=== PATIENT | female | born 1975 | race Caucasian/White ===

== ENCOUNTER 2017-04-13 10:27 | Emergency (ER) | payer BC, OTHER ==
[2017-04-13 11:17] LABS: Urine Appearance Clear; Urine Color Yellow
[2017-04-13 11:18] LABS: Urine Bilirubin Negative (NEGATIVE); Urine Blood Negative /ul (NEGATIVE); Urine Ketone Negative (NEGATIVE); Urine Nitrite Negative (NEGATIVE); Urine Protein Negative (NEGATIVE); Urine Specific Gravity 1.015 SP.GR. (1.005-1.010); Urine Urobilinogen Normal (NORMAL); Urine WBC 0-5 /hpf (0-5)
[2017-04-13 11:19] LABS: Urine Bacteria None Seen; Urine RBC None Seen /hpf (0-5)
[2017-04-13] MEDS ORDERED: KETOROLAC TROMETHAMINE 30 MG/ML VIAL IV ONE (11:44)
[2017-04-13] MEDS ORDERED: NORMAL SALINE 1,000 ML IV ONE (11:44)
--- NOTE | 2017-04-13 11:48 | ERNOTE ---
ER Female HPI Date of Service: 04/13/17 Stated Complaint: SEVERE BACK PAIN,ABDOMEN PAIN Presenting Symptoms: dysuria, other - Right flank pain down into suprapubic region. Time Seen by Provider: 04/13/17 11:36 Source: patient Exam Limitations: no limitations Immunizations: IMMUNIZATION HX Immunizations Up to Date Yes History of Influenza Vaccine No Hx Pneumococcal Vaccination No Allergies/Adverse Reactions: Allergies iodine Allergy (Verified 01/10/16 15:55) Home Medications: HOME MEDICATIONS Citalopram Hydrobromide [Celexa] 40 mg PO DAILY 10/01/15 [Last Taken Unknown] Omeprazole [Prilosec] 20 mg PO DAILY 10/01/15 [Last Taken Unknown] Clonazepam 1 mg PO 05/19/16 [Last Taken Unknown] Ibuprofen [Motrin] 800 mg PO TID PRN #60 tab 05/19/16 [Last Taken Unknown] Meloxicam [Mobic] 15 mg PO DAILY 04/13/17 [Last Taken Unknown] Topiramate [Topamax] 50 mg PO DAILY 04/13/17 [Last Taken Unknown] traMADol HCL [Tramadol HCl] 50 mg PO QID PRN #16 tablet 04/13/17 [Last Taken Unknown] - History of Present Illness Narrative: States she has been developing worsening right flank pain down into the right groin over the past few days. States she has dysuria. Has not noticed any gross hematuria. States she has had chills but no recorded fever. Denies any nausea/ vomiting. Date (Duration): 04/11/17 Timing: Present: getting worse Quality: Present: moderate, burning, sharpness Onset Location: Present: right flank, groin Radiation: Present: none Activities at Onset: Present: none Modifying Factors - (Improves): Present: analgesics, rest Modifying Factors - (Worsens): Present: movement, urinating Associated Symptoms: Present: fever/chills Review of Systems - Narrative Narrative: See HPI - Review of Systems Constitutional: Present: See HPI, chills Respiratory: Present: no symptoms reported Cardiology: Present: no symptoms reported Gastrointestinal/Abdominal: Present: other - Right flank pain down into groin. Periodic sharp stabbing. Best with rest. Genitourinary: Present: dysuria, other Musculoskeletal: Present: other - Denies any current back pain Skin: Present: no symptoms reported Neurological: Present: no symptoms reported Endocrine: Present: no symptoms reported Hematologic/Lymphatic: Present: no symptoms reported - Patient's Past Medical History Patient History - Medical: Anxiety, Depression, GERD, Kidney stone Patient History - Cardiac/Respiratory: No pertinent hx Patient History - Cancer: No Hx of Cancer Patient History - Surgical Procedures: Colonoscopy, , Tubal Ligation, T & A, Other Patient History - Other: None LMP (females 10-50): uterine ablation - Social History Living Situations: significant other Psych History: No pertinent hx Smoking Status: Never smoker Have you smoked in the past 12 months: No Do you dip or chew tobacco: No Alcohol Use: occasionally Drug Use: none - Immunizations Immunizations Up to Date: Yes Hx Pneumococcal Vaccination: No History of Influenza Vaccine: No Physical Exam - Physical Exam General Appearance: Present: wd/wn, alert, moderate distress Respiratory: Present: no respiratory distress, normal breath sounds, no accessory muscle use, chest nontender Cardiovascular/Chest: Present: regular rate, rhythm, no murmur, normal peripheral pulses Gastrointestinal/Abdominal: Present: normal bowel sounds, nondistended, soft, no organomegaly, other - Obese. Guarding or right flank. Tenderness in right groin. No direct abdominal tenderness. Fullness pressure of suprapubic area. Extremity Exam: Present: normal inspection, normal range of motion Neurological Exam: Present: alert, oriented, normal mood/affect, no motor/ sensory deficits Skin Exam: Present: normal color, warm/dry ED Progress - Results and Orders Patient's Lab Results:: I have reviewed the patient's lab results. - Vital Signs Patient's Vital Signs:: I have reviewed the patient's vital signs. Vital Signs: Vital Signs 04/13/17 10:44 Temperature 37.0 C Pulse Rate 70 Respiratory 14 Rate Blood Pressure 138/59 O2 Sat by Pulse 96 Oximetry - CT/Ultrasound CT/Ultrasound Narrative: Ultrasound per radiologist (no acute findings) - Progress/Reassessment Chief Complaint: Genitourinary Problem Progress:: Improved Progress Note-Subjective: 04/13/17 14:53 Mild pain only with extreme movement. Nothing at rest. Departure Clinical Impression: Flank pain - Departure Disposition: Home Follow Up Needed Condition: Good Additional Instructions: We have not found any reason for your discomfort. Could possibly be muscular or radiating from the spine. Either way continue your meloxicam and would not suggest taking additional ibuprofen with it. However may take tylenol along with the tramadol if needed. Make an appointment with family provider for Friday and if you have not improved you could be evaluated there. If you worsen, develope a fever, etc. return to ER. Referrals: Mayi Smyth ARNP [Primary Care Provider] - Prescriptions: traMADol HCL [Tramadol HCl] 50 mg PO QID PRN #16 tablet PRN Reason: Pain
[2017-04-13 11:57] LABS: Hematocrit 41.1 % (37.0-47.0); Hemoglobin 13.6 gm/dL (12.5-16.0); Mean Cell Volume 88.8 fl (78-100); Mean Corpuscular Hemoglobin 29.4 pg (27-31); Mean Corpuscular Hgb Conc 33.1 g/dl (32-36); Mean Platelet Volume 9.7 fl (6.0-9.5); Neutrophil % 69.3 % (42-75.0); Platelet Count 183 K/mm3 (150-450); Red Blood Count 4.63 M/mm3 (4.2-5.4); Red Cell Distribution Width 12.1 % (11.5-14.0); White Blood Count 7.3 K/mm3 (4.0-10.5)
[2017-04-13 12:10] LABS: Albumin * 3.4 gm/dl (3.4-5.0); Anion Gap 13.1 mmol/L (6.8-13.8); BUN/Creatinine Ratio 21.4 (9.0-21.6); Bilirubin, Total 0.3 mg/dL (0.0-1.1); Calcium * 8.8 mg/dL (7.9-10.9); Potassium 4.1 mmol/L (3.4-4.6); Total Protein 7.5 gm/dL (6.2-8.2)
[2017-04-13] MEDS ORDERED: KETOROLAC TROMETHAMINE 30 MG/ML VIAL ONE (12:27)
[2017-04-13 14:08] VITALS: BP 136/67
== END 2017-04-13 14:57 | disposition home or self-care (01) ==
LOC: ER 10:27
DX: R10.9 Unspecified abdominal pain (principal); Z87.442 Personal history of urinary calculi

== ENCOUNTER 2018-10-12 19:38 | Observation (INO) ==
[2018-10-12 20:13] LABS: Hematocrit 38.2 % (37.0-47.0); Hemoglobin 12.3 gm/dL (12.5-16.0); Mean Cell Volume 90.7 fl (78-100); Mean Corpuscular Hemoglobin 29.2 pg (27-31); Mean Corpuscular Hgb Conc 32.2 g/dl (32-36); Mean Platelet Volume 9.2 fl (8-12.5); Neutrophil # 5.2 K/mm3 (1.3-6.0); Neutrophil % 73.9 % (42-75.0); Platelet Count 213 K/mm3 (150-450); Red Blood Count 4.21 M/mm3 (4.2-5.4); Red Cell Distribution Width 12.9 % (11.5-14.0)
--- NOTE | 2018-10-12 20:30 | ERNOTE ---
Chest Pain/Cardiac HPI Date of Service: 10/12/18 Chief Complaint: Chest Pain Time Seen by Provider: 10/12/18 20:29 Source: patient Exam Limitations: no limitations Immunizations: IMMUNIZATION HX Immunizations Up to Date Yes History of Influenza Vaccine Yes Hx Pneumococcal Vaccination No Allergies/Adverse Reactions: Allergies iodine Allergy (Verified 10/12/18 19:54) Home Medications: HOME MEDICATIONS Citalopram Hydrobromide [Celexa] 40 mg PO DAILY 10/01/15 [Last Taken Unknown] Omeprazole [Prilosec] 20 mg PO DAILY 10/01/15 [Last Taken Unknown] Ibuprofen [Motrin] 800 mg PO TID PRN #60 tab 05/19/16 [Last Taken Unknown] Codeine Phosphate/Guaifenesin [Codeine-Guaifen 10-100 mg/5 ml] 10 ml PO Q4H PRN #100 liquid 08/30/18 [Last Taken Unknown] Pain Score #1 Pain Score: 7 Narrative: The patient is a 43 year old female who presents for left scapula pain that radiates through to chest which has been present since this am. There are associated symptoms of dyspnea, nausea and diaphoresis. The patient reports left back and chest pain, 7/10. There are no alleviating factors. There are no aggravating factors. Previous treatments have included: Tylenol and Ibuprofen without improvement. The past medical history includes: anxiety, depression and GERD. The social history is negative. The patient has had no ill contacts. Patient denies prior cardiac evaluation or family history. Patient states that pain began while resting on couch this am. Patient states all day she has had nausea, fatigue, dyspnea and diaphoresis. Patient states that later this a fternoon she also developed aching discomfort to left arm. Review of Systems - Review of Systems Constitutional: Present: chills, fatigue, malaise. Absent: recent illness, fever EYE: Present: no symptoms reported ENT: Present: no symptoms reported. Absent: ear pain, nasal drainage, sore throat Respiratory: Present: shortness of breath. Absent: cough Cardiology: Present: chest pain, edema Gastrointestinal/Abdominal: Present: nausea. Absent: vomiting, diarrhea, abdominal pain Genitourinary: Present: no symptoms reported. Absent: dysuria, decreased urinary output Musculoskeletal: Present: back pain Skin: Present: no symptoms reported. Absent: rash Neurological: Present: headache All Other Systems: All systems neg except as marked Medical History (Updated 08/30/18 @ 16:44 by Nya Singh RN) Anxiety Depression GERD (gastroesophageal reflux disease) Kidney stone Surgical History: Surgical History (Updated 08/30/18 @ 16:46 by Nya Singh RN) H/O tubal ligation History of History of colonoscopy History of tonsillectomy and adenoidectomy Family History: Family History (Updated 10/12/18 @ 19:54 by Kathryn Palma RN) Other No pertinent family history Social History: Preferred Language Sammarinese Do you have any mormonism or No cultural preference? Smoking Status Never smoker Psych History No pertinent hx Alcohol Use none Drug Use none No Social History Section defined Physical Exam - Physical Exam General Appearance: Present: wd/wn, alert, no apparent distress Head Exam: Present: normal inspection Eye Exam: Normal inspection: bilateral Neck: Present: normal inspection Respiratory: Present: no respiratory distress, normal breath sounds, no accessory muscle use, lungs clear, chest tenderness - left anterior chest Cardiovascular/Chest: Present: regular rate, rhythm, no murmur Peripheral Pulses: N=norm/S=strong/W=weak/B=bound/A=absent: Radial (R): Normal Gastrointestinal/Abdominal: Present: normal bowel sounds, nontender, nondistended, soft, no organomegaly Extremity Exam: Present: pedal edema - trace Neurological Exam: Present: alert, oriented, normal mood/affect Skin Exam: Present: normal color, warm/dry Progress - Date and Time Seen: Date and Time: 10/12/18 21:17 Patient states pain 4/10 after initial Nitro. 10/12/18 21:59 Discussed case with , will admit for observation CP. Patient pain 2/10 after 2nd Nitro. - Results and Orders Patient's Lab Results:: I have reviewed the patient's lab results. - Vital Signs Patient's Vital Signs:: I have reviewed the patient's vital signs. Vital Signs: Vital Signs 10/12/18 19:52 Temperature 36.9 C Pulse Rate 87 Respiratory Rate 19 Blood Pressure 134/86 O2 Sat by Pulse Oximetry 98 - EKG EKG #1 EKG: NSR EKG read: Interp. by mi - X-Ray X-Ray #1 X-Ray: chest Interpretation: Reviewed by me X-ray Comments: No acute cardiopulmonary abnormalities. - Progress/Reassessment Chief Complaint: Chest Pain Departure Clinical Impression: Chest pain Qualifiers: Chest pain type: unspecified Qualified Code(s): R07.9 - Chest pain, unspecified - Departure Disposition: Still a patient Condition: Good
[2018-10-12 20:31] LABS: ALT 20 U/L (19-67); AST 15 U/L (0-48); Albumin * 3.2 gm/dl (3.4-5.0); Alkaline Phosphatase * 106 U/L (50-170); Anion Gap 12.9 mmol/L (6.8-13.8); BUN/Creatinine Ratio 19.3 (9.0-21.6); Bilirubin, Total 0.4 mg/dL (0.0-1.1); Blood Urea Nitrogen 17 mg/dL (3-23); Ca. Corrected For Albumin 8.7 mg/dL (8.4-10.2); Calcium * 8.4 mg/dL (7.9-10.9); Carbon Dioxide 24.8 mmol/L (24-32.6); Chloride 101 mmol/L (97-106); Glucose * 100 mg/dL (70-110); Potassium 3.7 mmol/L (3.4-4.6); Sodium 135 mmol/L (132-142); Total Protein 7.4 gm/dL (6.2-8.2); Troponin I Less than 0.017 ng/mL (0.00-0.10)
[2018-10-12] MEDS ORDERED: NITROGLYCERIN 0.4 MG/TAB BTL SL ONE ×2 (20:49→21:17)
[2018-10-12] MEDS ORDERED: ASPIRIN 81 MG TAB.CHEW PO ONE (20:49)
[2018-10-12] MEDS ORDERED: ONDANSETRON HCL/PF 2 MG/ML VIAL IV ONE (20:54)
[2018-10-12] MEDS ORDERED: ROSUVASTATIN CALCIUM 20 MG TABLET PO STA (21:58)
[2018-10-13] MEDS ORDERED: ONDANSETRON HCL/PF 2 MG/ML VIAL IV STA (01:32)
[2018-10-13] MEDS ORDERED: ONDANSETRON HCL/PF 2 MG/ML VIAL IV PRN (09:19)
--- NOTE | 2018-10-13 10:09 | HP ---
Chief Complaint - Chief Complaint Date of Service: 10/13/18 Time of Service: 09:41 Chief Complaint: Back pain radiating to the chest and left arm History of Present Illness: 43-year-old female with a past medical history of anxiety depression GERD and kidney stones presents from home with complaints of upper back pain radiating to the chest and left arm. She states 2 days prior she had eaten some fresh mushrooms that her sister had picked. Yesterday she began to experience feelings of upper back pain radiating to the chest and left arm, associated with nausea. She presented to the emergency department and had an episode of vomiting 500 cc of fluid. Her symptoms progressed to upper abdominal pain and diarrhea. She denies fevers but reports chills. She was admitted for chest pain observation but troponins were negative. 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 Smoking Status Never smoker Have you smoked in the past 12 No months Psych History No pertinent hx Alcohol Use none Drug Use none No Social History Section defined Review Of Systems (GEN) - Review of Systems Generalized/Overall Review: Present: Chills. Absent: Fever Respiratory: Present: Shortness of Breath Cardiac: Absent: Chest Pain Abdominal: Present: Nausea, Vomiting, Abdominal Pain Musculoskeletal: Present: Back Pain Immunizations: IMMUNIZATION HX Immunizations Up to Date Yes History of Influenza Vaccine Yes Hx Pneumococcal Vaccination No Allergies/Adverse Reactions: Allergies Allergy/AdvReac Type Severity Reaction Status Date / Time iodine Allergy Verified 10/12/18 22:20 Home Medications: HOME MEDICATIONS Citalopram Hydrobromide [Celexa] 40 mg PO DAILY 10/01/15 [Last Taken Unknown] Omeprazole [Prilosec] 20 mg PO DAILY 10/01/15 [Last Taken Unknown] Furosemide [Lasix] 20 mg PO SUTUTHSA 10/12/18 [Last Taken Unknown] Furosemide [Lasix] 40 mg PO MOWEFR 10/12/18 [Last Taken Unknown] Potassium Citrate [Urocit-K] 1,600 mg PO BID 10/12/18 [Last Taken Unknown] buPROPion HCL [Wellbutrin] 100 mg PO BID 10/12/18 [Last Taken Unknown] busPIRone HCL [Buspar] 15 mg PO BID 10/12/18 [Last Taken Unknown] Exam - Exam Vital Signs: Vital Signs - Last Taken Temp 37.4 C 10/13/18 02:30 Pulse 86 10/13/18 06:28 Resp 18 10/13/18 06:28 BP 123/63 10/13/18 06:28 Pulse Ox 96 10/13/18 06:28 Constitutional: Present: Alert, Oriented x3, Cooperative, Well developed, Well nourished, No distress, Obese ENT Exam: Present: hearing grossly normal, moist mucous membranes Eye Exam: bilateral eye: normal inspection Neck: Present: non-tender, supple. Absent: lymphadenopathy (R), lymphadenopathy (L) Back Exam: Present: normal inspection, no CVA tenderness, other - Tenderness to palpation of the left medial, inferior aspect of the scapula. Respiratory: Present: lungs clear, no respiratory distress. Absent: accessory muscle use, crackles, rhonchi, No wheezing Cardiovascular/Chest: Present: normal peripheral pulses, regular rate, rhythm, no edema, no murmur Peripheral Pulses: dorsalis-pedis (R): 2+, dorsalis-pedis (L): 2+ Abdomen: Present: Normal bowel sounds, soft, tender - Tenderness in the left and right upper quadrants Extremity: Present: normal inspection, no pedal edema Skin Exam: Present: normal color, warm/dry Appearance: Present: appropriate appearance, appropriate insight Eye contact: Present: cooperative, good eye contact, normal speech Thoughts: Present: normal thought pattern, normal mood /affect Diagnostic Studies: Abnormal Lab Results 10/12/18 10/12/18 10/12/18 Range/Units 20:08 20:08 20:08 Hgb 12.3 L (12.5-16.0) gm/dL Immature Gran % (Auto) 0.60 H (0.001-0.429) % Immature Gran # (Auto) 0.04 H (0.000-0.0310) K/mm3 Lymphocytes % 17.0 L (20-51) % Lymphocytes # 1.19 L (1.5-3.5) k/mm3 B-Natriuretic Peptide 174 H (5-150) pg/mL Albumin 3.2 L (3.4-5.0) gm/dl Laboratory Results WBC 7.0 K/mm3 (4.0-10.5) 10/12/18 20:08 RBC 4.21 M/mm3 (4.2-5.4) 10/12/18 20:08 Hgb 12.3 gm/dL (12.5-16.0) L 10/12/18 20:08 Hct 38.2 % (37.0-47.0) 10/12/18 20:08 MCV 90.7 fl (78-100) 10/12/18 20:08 MCH 29.2 pg (27-31) 10/12/18 20:08 MCHC 32.2 g/dl (32-36) 10/12/18 20:08 RDW 12.9 % (11.5-14.0) 10/12/18 20:08 Plt Count 213 K/mm3 (150-450) 10/12/18 20:08 MPV 9.2 fl (8-12.5) 10/12/18 20:08 Immature Gran % (Auto) 0.60 % (0.001-0.429) H 10/12/18 20:08 Immature Gran # (Auto) 0.04 K/mm3 (0.000-0.0310) H 10/12/18 20:08 73.9 % (42-75.0) 10/12/18 20:08 17.0 % (20-51) L 10/12/18 20:08 6.3 % (0.0-9) 10/12/18 20:08 1.9 % (0.0-3.0) 10/12/18 20:08 0.3 % (0.0-1.0) 10/12/18 20:08 Nucleated RBC % 0.0 k/mm3 (0-1) 10/12/18 20:08 5.2 K/mm3 (1.3-6.0) 10/12/18 20:08 1.19 k/mm3 (1.5-3.5) L 10/12/18 20:08 0.4 k/mm3 (0.0-1.0) 10/12/18 20:08 0.1 k/mm3 (0.0-0.7) 10/12/18 20:08 Absolute Basophils 0.0 k/mm3 (0.0-0.1) 10/12/18 20:08 Sodium 135 mmol/L (132-142) 10/12/18 20:08 135 mmol/L (130-142) 10/12/18 20:08 Potassium 3.7 mmol/L (3.4-4.6) 10/12/18 20:08 Chloride 101 mmol/L (97-106) 10/12/18 20:08 Carbon Dioxide 24.8 mmol/L (24-32.6) 10/12/18 20:08 12.9 mmol/L (6.8-13.8) 10/12/18 20:08 BUN 17 mg/dL (3-23) 10/12/18 20:08 0.88 mg/dL (0.4-1.4) 10/12/18 20:08 Est GFR (Non-Af Amer) 75 mL/min (60-130) D 10/12/18 20:08 19.3 (9.0-21.6) 10/12/18 20:08 100 mg/dL (70-110) 10/12/18 20:08 Calcium 8.4 mg/dL (7.9-10.9) 10/12/18 20:08 Calcium Adj for Albumin 8.7 mg/dL (8.4-10.2) 10/12/18 20:08 0.4 mg/dL (0.0-1.1) 10/12/18 20:08 AST 15 U/L (0-48) 10/12/18 20:08 ALT 20 U/L (19-67) 10/12/18 20:08 106 U/L (50-170) 10/12/18 20:08 Less than 0.017 ng/mL (0.00-0.10) 10/13/18 02:00 B-Natriuretic Peptide 174 pg/mL (5-150) H 10/12/18 20:08 7.4 gm/dL (6.2-8.2) 10/12/18 20:08 3.2 gm/dl (3.4-5.0) L 10/12/18 20:08 Assessment/Plan - Narrative Narrative: 43-year-old female with a past medical history of anxiety depression GERD and kidney stones presents from home with complaints of upper back pain radiating to the chest and left arm. She states 2 days prior she had eaten some fresh mushrooms that her sister had picked. Yesterday she began to experience feelin gs of upper back pain radiating to the chest and left arm, associated with nausea. She presented to the emergency department and had an episode of vomiting 500 cc of fluid. Her symptoms progressed to upper abdominal pain and diarrhea. She denies fevers but reports chills. She was admitted for chest pain observation but troponins were negative. Serial troponins continue to be negative. She continues to have abdominal pain, liquidy diarrhea and nausea and vomiting. Her symptoms are likely secondary to gastroenteritis, possibly from the mushrooms she ate over the weekend. - Assessment/Plan (1) Gastroenteritis Assessment: Symptoms may be secondary to while measuring that she ate over the weekend. We will advance her to a clear liquid diet. If she is able to tolerate it and stay hydrated we will consider sending her home. Problem: Acute (2) Depression Assessment: Stable, resume home meds. Problem: Acute (3) GERD (gastroesophageal reflux disease) Assessment: Stable, continue home meds. Problem: Acute (4) Back pain Assessment: Likely musculoskeletal in origin. She has tenderness to palpation in the left scapular region. Advised to apply heat pack to the area and can take Tylenol or ibuprofen for pain. Problem: Acute Qualifiers: Back pain location: back pain in other location Chronicity: acute Qualified Code(s): M54.9 - Dorsalgia, unspecified (5) Chest pain Assessment: She complains of upper back pain that radiates to her chest on admission. Pain described as achy, sharp and is intermittent. Troponins are negative. This is unlikely cardiac in nature. Problem: Acute Qualifiers: Chest pain type: unspecified Qualified Code(s): R07.9 - Chest pain, unspecified
--- NOTE | 2018-10-13 10:13 | DS ---
(1) Gastroenteritis Diagnosis(s): Continue with clear liquid diet. Advance diet as tolerated. Problem: Acute (2) Depression Diagnosis(s): Stable resume home meds. Problem: Acute (3) GERD (gastroesophageal reflux disease) Diagnosis(s): Stable resume home meds. Problem: Acute (4) Back pain Diagnosis(s): Likely musculoskeletal in origin, she can apply heat packs to area and use ibuprofen or Tylenol for pain as needed. Problem: Acute Qualifiers: Back pain location: back pain in other location Chronicity: acute Qualified Code(s): M54.9 - Dorsalgia, unspecified (5) Chest pain Diagnosis(s): She complains of upper back pain that radiates to her chest. Pain described as achy, sharp and is intermittent. Troponins are negative. This is unlikely cardiac in nature. Problem: Acute Qualifiers: Chest pain type: unspecified Qualified Code(s): R07.9 - Chest pain, unspecified Description of Stay: 43-year-old female with a past medical history of anxiety depression GERD and kidney stones presents from home with complaints of upper back pain radiating to the chest and left arm. She states 2 days prior she had eaten some wild mushrooms that her sister had picked. Yesterday she began to experience feelings of upper back pain radiating to the chest and left arm, associated with nausea. She presented to the emergency department and had an episode of vomiting 500 cc of fluid. Her symptoms progressed to upper abdominal pain and diarrhea. She denies fevers but reports chills. She was admitted for chest pain observation but troponins were negative. Chest pain improved during hospitalization. She tolerated a clear liquid diet and her nausea and vomiting improved with Zofran. She is stable for discharge home. Procedures Performed: none Results and Findings: Lab Pending Results 10/12/18 20:08: WBC 7.0, RBC 4.21, Hgb 12.3 L, Hct 38.2, MCV 90.7, MCH 29.2, MCHC 32.2, RDW 12.9, Plt Count 213, MPV 9.2, Immature Gran % (Auto) 0.60 H, Immature Gran # (Auto) 0.04 H, Neutrophils % 73.9, Lymphocytes % 17.0 L, Monocytes % 6.3, Eosinophils % 1.9, Basophils % 0.3, Nucleated RBC % 0.0, Neutrophils # 5.2, Lymphocytes # 1.19 L, Monocytes # 0.4, Eosinophils # 0.1, Absolute Basophils 0.0 10/12/18 20:08: Sodium 135, Plasma Sodium 135, Potassium 3.7, Chloride 101, Carbon Dioxide 24.8, Anion Gap 12.9, BUN 17, Creatinine 0.88, Est GFR (Non-Af Amer) 75 D, BUN/Creatinine Ratio 19.3, Random Glucose 100, Calcium 8.4, Calcium Adj for Albumin 8.7, Total Bilirubin 0.4, AST 15, ALT 20, Alkaline Phosphatase 106, Troponin I Less than 0.017, Total Protein 7.4, Albumin 3.2 L 10/12/18 20:08: B-Natriuretic Peptide 174 H 10/13/18 02:00: Troponin I Less than 0.017 Discharge Location: Home Disposition: Home self-care Condition: Good Discharge Activity: Activity as tolerated Discharge Diet: Clear Liquids Referrals: Jania Huang FNP [Primary Care Provider] - Prescriptions (Any new or edited meds): Ondansetron [Zofran Odt] 4 mg PO Q6H PRN #15 tab PRN Reason: Nausea And Vomiting Complete Home Medications List: Complete Home Medication List: Citalopram Hydrobromide [Celexa] 40 mg PO DAILY 10/01/15 Omeprazole [Prilosec] 20 mg PO DAILY 10/01/15 Furosemide [Lasix] 20 mg PO SUTUTHSA 10/12/18 Furosemide [Lasix] 40 mg PO MOWEFR 10/12/18 Potassium Citrate [Urocit-K] 1,600 mg PO BID 10/12/18 buPROPion HCL [Wellbutrin] 100 mg PO BID 10/12/18 busPIRone HCL [Buspar] 15 mg PO BID 10/12/18 Ondansetron [Zofran Odt] 4 mg PO Q6H PRN #15 tab 10/13/18
[2018-10-13] MEDS ORDERED: ACETAMINOPHEN 325 MG TABLET PO PRN (10:36)
[2018-10-13] MEDS ORDERED: ONDANSETRON 4 MG TAB.RAPDIS PO ONE (14:24)
[2018-10-13 16:27] VITALS: BP 111/72
== END 2018-10-13 16:20 | disposition home or self-care (01) ==
LOC: MS 19:38 → ER 19:38
PROVIDERS: ADMIT Internal Medicine; ATTEND Internal Medicine
CPT/HCPCS: 36415; 71020; 71046; 80053; 83519; 83880; 84484; 85025; 93005; 96374; 96375; 99285; G0378; J2405